=== PATIENT | female | born 1980 | race Caucasian/White ===

== ENCOUNTER 2017-02-15 08:00 | Outpatient (CLI) | payer BC ==
[~2017-02-15] VITALS: Ht 162.6 cm; Wt 106.6 kg
[~2017-02-15 08:00] MED LIST: ALLO300T2 PO; LEVO500T2 PO; LISI1TAB10 PO; PRD20T PO
[2017-02-15] MEDS ORDERED: METF500T8 PO (09:11)
[2017-02-15] MEDS ORDERED: PANT40TA3 PO (09:11)
[2017-02-15] MEDS ORDERED: HYDR-3812 PO (09:11)
[2017-02-15] MEDS ORDERED: MULT-141 PO (09:13)
[2017-02-17] MEDS ORDERED: OXYC-465 PO (10:27)
== END 2017-02-15 09:16 ==
LOC: PREOP 08:00
PROVIDERS: ATTEND Obstetrics & Gynecology
DX: Z01.818 Encounter for other preprocedural examination (principal); R10.2 Pelvic and perineal pain; D64.9 Anemia, unspecified

== ENCOUNTER 2017-02-17 09:37 | Day surgery (SDC) | payer BC ==
[~2017-02-17] VITALS: Ht 162.6 cm; Wt 106.6 kg
[2017-02-17 09:30] VITALS: BP 120/75
[~2017-02-17 09:37] MED LIST changes: +HYDR-3812 PO; +METF500T8 PO; +MULT-141 PO; +PANT40TA3 PO
[2017-02-17 10:01] LABS: MEAN PLATELET VOLUME 9.9 FL (7.4-10.4); RED BLOOD COUNT 4.4 10^6/uL (4.35-5.85); RED CELL DISTRIBUTION WIDTH 14.1 % (10.0-14.5); WHITE BLOOD COUNT 7.1 10^3/uL (4.3-11.0)
[2017-02-17 10:17] LABS: ANION GAP 14 MMOL/L (5-14); BLOOD UREA NITROGEN 16 MG/DL (7-18); BUN/CREATININE RATIO 20; CALCIUM 9.5 MG/DL (8.5-10.1); CARBON DIOXIDE 20 MMOL/L (21-32); CHLORIDE 106 MMOL/L (98-107); CREATININE SERUM 0.82 MG/DL (0.60-1.30); GFR ESTIMATED > 60; GLUCOSE 116 MG/DL (70-105); POTASSIUM 4.1 MMOL/L (3.6-5.0); SODIUM 140 MMOL/L (135-145)
[2017-02-17] MEDS ORDERED: D5 LR IV SOLUTION 1,000 ML IV SCH (10:24)
--- NOTE | 2017-02-17 10:26 | Discharge Instructions ---
Discharge Instructions Discharge Medications New, Converted or Re-Newed RX: RX on Chart Patient Instructions Patient Instructions: as directed Return to The Hospital For: as directed Activity & Diet Discharge Diet: No Restrictions Activity as Tolerated: No Orders-Post D/C & Referrals Follow Up Appt: Call to make follow up appt. for patient in 1weeks. Activity: Rest for 24 hours, than as tolerated. Wound Care: May remove Band-Aid tomorrow. Replace as desired. Keep incisions clean and dry. Wash daily with soap and water. Diet: As tolerated-Clear Liquids only if nauseated. May shower or tub bathe as desired. No driving for 24 hours, no alcoholic beverages for 24 hours, and nothing per vagina (no tampons, douching, or intercourse) for 2 weeks. Patient to return to the clinic as soon as possible for: Temperature greater than 101F, Severe Pain, Foul discharge from incision or vagina, Excessive Bleeding (more than a period). BETH RAWLS MD Feb 17, 2017 10:26 am
[2017-02-17] MEDS ORDERED: OXYC-465 PO (10:27)
--- NOTE | 2017-02-17 10:28 | Progress Note-Pre Operative ---
Pre-Operative Progress Note H&P Reviewed The H&P was reviewed, patient examined and no changes noted. Date H&P Reviewed: Feb 17, 2017 Time H&P Reviewed: 10:28 Pre-Operative Diagnosis: chronic pelvic pain/likely endometriosis BETH RAWLS MD Feb 17, 2017 10:28 am
[2017-02-17] MEDS ORDERED: oxyCODONE/APAP 10/325MG (PERCOCET 10) TABLET PO PRN (10:30)
[2017-02-17] MEDS ORDERED: CATHETER FLUSH 10 ML SYR IV PRN (10:30)
[2017-02-17] MEDS ORDERED: ESTROGENS CONJ IV 25 MG/5 ML (PREMARIN) VIAL IVP ONE (10:30)
[2017-02-17] MEDS ORDERED: ceFAZolin 1 GM/NS 50 ML IVPB IV ONE ×2 (10:30)
[2017-02-17] MEDS ORDERED: PROMETHAZINE INJ 25 MG/ML (PHENERGAN) AMP IM ONE (10:30)
[2017-02-17] MEDS ORDERED: MEPERIDINE (DEMEROL) INJ 100 MG/ML IM ONE (10:30)
[2017-02-17] MEDS ORDERED: ONDANSETRON 4 MG/2 ML (SDV) Z0FRAN IVP PRN ×2 (10:30→12:45)
[2017-02-17] MEDS ORDERED: KETOROLAC 30 MG/ML VIAL IVP ONE (10:30)
[2017-02-17] MEDS ORDERED: LACTATED RINGERS 1,000 ML IV PRN (10:34)
[2017-02-17] MEDS ORDERED: SEVOFLURANE (ULTANE) 15 ML INHAL SOLN ONE ×4 (10:48→12:20)
[2017-02-17] MEDS ORDERED: DEXAMETHASONE PF 10 MG/ML (DECADRON) VIAL ONE ×2 (10:48→11:00)
[2017-02-17] MEDS ORDERED: LACTATED RINGERS 1,000 ML IV ONE ×3 (10:48→11:59)
[2017-02-17] MEDS ORDERED: ROCURONIUM 50 MG/5 ML (ZEMURON) VIAL IV ONE ×2 (10:48→11:00)
[2017-02-17] MEDS ORDERED: ONDANSETRON 4 MG/2 ML (SDV) Z0FRAN ONE ×2 (10:48→11:00)
[2017-02-17] MEDS ORDERED: MIDAZOLAM 2 MG/2 ML (VERSED) VIAL ONE (10:51)
[2017-02-17] MEDS ORDERED: fentaNYL INJECTION 100 MCG/2 ML AMP ONE ×3 (10:51→12:24)
[2017-02-17] MEDS ORDERED: LIDOCAINE PF 2% 10 ML (XYLOCAINE) AMP ONE (11:00)
[2017-02-17] MEDS ORDERED: proPOfol 200 MG/20 ML (DIPRIVAN) VIAL IV ONE (11:00)
[2017-02-17] MEDS ORDERED: BUP/EPI 0.25% 1:200,000 (MARCAINE) 30 ML VIAL ONE (11:07)
[2017-02-17] MEDS ORDERED: NEOSTIGMINE (BLOXIVERZ ) 1 MG/1ML 10 ML VIAL ONE (12:20)
[2017-02-17] MEDS ORDERED: GLYCOPYRROLATE 0.2 MG/ML (ROBINUL) 2 ML VIAL ONE (12:20)
[2017-02-17] MEDS ORDERED: KETOROLAC 30 MG/ML VIAL ONE (12:21)
[2017-02-17] MEDS ORDERED: MEPERIDINE (DEMEROL) INJ 50 MG/ML IVP PRN (12:45)
[2017-02-17] MEDS ORDERED: morphine INJ 10 MG/ML 1ML (SYR OR VIAL) IVP PRN (12:45)
[2017-02-17] MEDS ORDERED: WATER (STERILE) FOR INJECTION 10 ML ONE (13:08)
[2017-02-17] MEDS ORDERED: ESTROGENS CONJ IV 25 MG/5 ML (PREMARIN) VIAL ONE (13:08)
[2017-02-17 13:35] VITALS: BP 120/75
[2017-02-17 14:05] VITALS: BP 127/87
[2017-02-17 14:35] VITALS: BP 124/81
[2017-02-17 14:45] VITALS: BP 124/81
--- NOTE | 2017-02-21 10:20 | OPERATIVE REPORT ---
PROCEDURE PHYSICIAN: BETH RAWLS DATE OF PROCEDURE: 02/17/2017 DATE OF THIS DICTATION: 02/17/2017 PREOPERATIVE DIAGNOSIS: 1. Chronic pelvic pain. 2. Dysfunctional uterine bleeding and menorrhagia. POSTOPERATIVE DIAGNOSIS: 1. Chronic pelvic pain. 2. Dysfunctional uterine bleeding and menorrhagia. 3. Endometriosis. 4. Appendicitis. OPERATIVE PROCEDURE: 1. D\T\C followed by diagnostic laparoscopy with pelviscopy performed for destruction of endometriosis implants. 2. Laparoscopic appendectomy. OPERATIVE DESCRIPTION: With the patient in supine position, under satisfactory general anesthesia, she was repositioned in dorsal lithotomy position in the [facility] and prepped and draped usual fashion for abdominal and vaginal surgery. The urinary bladder was emptied with a straight catheter. A weighted speculum was placed in posterior fornix of the vagina. Cervix exposed and grasped anteriorly with a single-tooth tenaculum. The uterus was sounded to 9 cm with uterine sound. The cervix was then serially dilated with Jose dilators to accommodate a curette, which was introduced and the endometrial cavity sharply curettaged in all 4 quadrants to a good uterine cry. The curettings were sent to pathology for permanent section. A uterine manipulator was then placed in the uterus and the bulb filled with 4 mL of air. The tenaculum and speculum were removed from the vagina. The patient brought in a low dorsal lithotomy position. A 5 mm incision made in patient's left upper quadrant. Veress needle was placed through that incision into the abdominal cavity and correct placement confirmed with the water drop test. The abdomen was insufflated with 2.4 liters of carbon dioxide then the Veress needle was removed and a 5 mm Optiview laparoscopic port placed under direct vision. The patient placed in Trendelenburg, allowing the bowel to spill up out of pelvis. It was obvious there were endometriosis implants in both ovarian fossae and the appendix appeared to be injected and inflamed. It was indurated as well. A 12 mm port was placed through an incision of that size made through her previous laparoscopy incision above her umbilicus and then a 5 mm port placed through an incision of that size superior to the symphysis pubis. The ovaries were examined. There was an endometriosis implant on the medial aspect of the right ovary. This was touched with electrocautery to destroy it. The endometriosis implants in the ovarian fossa on the right were touched with electrocautery to destroy them as were the implants on the left. There was a cyst on the left ovary that was vesicular appearance consistent with possible endometriosis that was destroyed as well. There were endometriosis implants on the right fallopian tube that were destroyed. The uterus was retroverted the anterior cul-de-sac examined. There was no abnormal pathology noted. Laparoscope was brought back to the cul-de-sac with no further endometriosis in that area. No further abnormal pathology, attention was turned to the appendix. The appendix was grasped and elevated. It was quite firm, indurated and injected. The mesoappendix was indurated and inflamed appearing as well. The mesoappendix was perforated close to the base of the appendix. Endo SHARON was placed across the base of the appendix and fired. A second firing of that instrument across the mesoappendix divided the organ from its attachment. The appendix was then placed in an Endobag and brought out through the umbilical port. The stump of the appendix was copiously irrigated and treated was several drops of Betadine solution. The pelvis was examined for hemostasis. With that being complete, with no further abnormal pathology, the procedure was terminated. The operative instruments were removed under direct vision as were the ports. The abdomen was evacuated of its insufflating gas in the process of removing the ports. All 3 skin incision were closed with interrupted sutures of 3-0 nylon. The fascia at the supraumbilical incision was closed with [id number] suture of 2-0 Vicryl. The uterine manipulator bulb was drained. The instrument was removed from the vagina. Speculum replaced in the vagina. Cervix examined and found completely hemostatic. With sponge and needle counts correct hemostasis assured, estimated blood loss minimal. The procedure was complete and terminated. The patient was uneventfully awakened from her general anesthesia and transferred to the recovery in stable condition with plans for discharge home [place]. Job ID: [id number] Dictated Date: 02/17/2017 12:25:12 [employer] Date: 02/21/2017 10:08:25 / shayy
== END 2017-02-17 14:40 | disposition home or self-care (01) ==
LOC: SDC 09:37
PROVIDERS: ATTEND Obstetrics & Gynecology
DX: N93.8 Other specified abnormal uterine and vaginal bleeding (principal); N92.0 Excessive and frequent menstruation with regular cycle; N80.1 Endometriosis of ovary; N80.2 Endometriosis of fallopian tube; N83.202 Unspecified ovarian cyst, left side; K38.0 Hyperplasia of appendix
CPT/HCPCS: 36415; 80048; 84703; 85027; 87081; 88302; 88305

== ENCOUNTER → 2018-11-02 | Outpatient (CLI) | payer BC ==
[~2018-11-02] MED LIST changes: +ACHD5005 PO; -HYDR-3812 PO; +OXYC-465 PO
--- NOTE | 2018-11-02 12:37 | Diagnostic Imaging Report ---
EXAMINATION: Pelvis, single view. Right hip, 2 additional views. Left hip, 2 additional views. COMPARISON: None. HISTORY: 38-year-old female, chronic back and bilateral hip pain. FINDINGS: The pubic symphysis and sacroiliac joints are unremarkable in appearance. The right and left hips are not dislocated. There is no joint space loss of either hip, osteophyte formation, or subchondral cystic change. Bone mineralization appears to be within normal limits. There is no identified fracture or radiographically apparent bone lesion. IMPRESSION: Unremarkable radiographs of the pelvis and bilateral hips. Dictated by: Dictated on workstation # [id number]
--- NOTE | 2018-11-02 12:38 | Diagnostic Imaging Report ---
EXAMINATION: Lumbar spine radiographs, 3 views. COMPARISON: None. HISTORY: 38-year-old female, chronic back and bilateral hip pain. FINDINGS: Right upper quadrant surgical clips likely relate to prior cholecystectomy. There are five normal type lumbar vertebral bodies. There is no compression deformity or fracture. The alignment of the lumbar spine is unremarkable. The disc heights are well-preserved. There are no pronounced endplate degenerative changes. The facet joints are unremarkable. Unremarkable appearance of the sacroiliac joints. IMPRESSION: Normal radiographic evaluation of the lumbar spine. Dictated by: Dictated on workstation # [id number]
== END ==
LOC: RAD 12:03
PROVIDERS: ATTEND Nurse Practitioner Family
DX: M54.5 Low back pain (principal); M25.551 Pain in right hip; M25.552 Pain in left hip
CPT/HCPCS: 72100; 73523

== ENCOUNTER → 2019-08-02 | Outpatient (CLI) | payer BC ==
[2019-08-02 16:06] LABS: ABSOLUTE RETIC # 63 10e9/L (24-90); BASOPHILS # (AUTO) 0.1 10^3/uL (0.0-0.1); BASOPHILS % (AUTO) 1 % (0-10); EOSINOPHILS # (AUTO) 0.2 10^3/uL (0.0-0.3); EOSINOPHILS % (AUTO) 2 % (0-10); HEMATOCRIT 36 % (35-52); HEMOGLOBIN 11.7 G/DL (11.5-16.0); LYMPHOCYTES # (AUTO) 2.6 X 10^3 (1.0-4.0); LYMPHOCYTES % (AUTO) 23 % (12-44); MEAN CORPUSCULAR HEMOGLOBIN 26 PG (25-34); MEAN CORPUSCULAR HGB CONC 33 G/DL (32-36); MEAN CORPUSCULAR VOLUME 80 FL (80-99); MEAN PLATELET VOLUME 9.5 FL (7.4-10.4); MONOCYTES # (AUTO) 0.9 X 10^3 (0.0-1.0); MONOCYTES % (AUTO) 8 % (0-12); NEUTROPHILS # (AUTO) 7.4 X 10^3 (1.8-7.8); NEUTROPHILS % (AUTO) 67 % (42-75); PLATELET COUNT 464 10^3/uL (130-400); RED CELL DISTRIBUTION WIDTH 14.5 % (10.0-14.5); WHITE BLOOD COUNT 11.1 10^3/uL (4.3-11.0)
[2019-08-02 16:24] LABS: BAND NEUTROPHILS 0 %; BASOPHILS % (MANUAL) 0 %; EOSINOPHILS % (MANUAL) 3 %; LYMPHOCYTES % (MANUAL) 24 %; MONOCYTES % (MANUAL) 2 %; NEUTROPHILS % (MANUAL) 67 %; POLYCHROMASIA SLIGHT; REACTIVE LYMPHOCYTES 4 %; SMUDGE CELLS SLIGHT
[2019-08-02 16:25] LABS: ANISOCYTOSIS SLIGHT; STOMATOCYTES SLIGHT
== END ==
LOC: LAB 15:54
PROVIDERS: ATTEND Nurse Practitioner Family
DX: D47.3 Essential (hemorrhagic) thrombocythemia (principal); R59.9 Enlarged lymph nodes, unspecified
CPT/HCPCS: 36415; 82306; 85007; 85027; 85045